=== PATIENT | male | born 1965 | race Caucasian/White ===

== ENCOUNTER → 2023-11-26 15:17 | Outpatient (REF) | payer OTHER, SELFPAY | LOC: RCS 15:17 | PROVIDERS: ATTENDING PHYSICIAN Internal Medicine Interventional Cardiology; FAMILY PHYSICIAN Student in an Organized Health Care Education/Training Program | DX: R00.2 Palpitations (principal); I48.0 Paroxysmal atrial fibrillation; I34.1 Nonrheumatic mitral (valve) prolapse | CPT/HCPCS: 93306 ==